=== PATIENT | female | born 1990 | race Caucasian/White ===

== ENCOUNTER 2025-01-23 23:02 | Emergency (ER) | payer SELFPAY ==
[2025-01-23 23:08] VITALS: BP 143/75; PULSE 97; RESP 18; TEMP 98.3; BMI 32.8
[2025-01-23 23:46] LABS: EPI CELLS >36 /uL (0-25.1); HCG,QUALITATIVE URINE Negative; HYALINE CASTS 0 /uL (0-3.1); URINE APPEARANCE CLOUDY; URINE BACTERIA 1022 /uL (0-1359); URINE BILIRUBIN NEGATIVE (NEGATIVE); URINE COLOR YELLOW; URINE GLUCOSE (UA) NEGATIVE (NEGATIVE); URINE KETONE NEGATIVE (NEGATIVE); URINE LEUK ESTERASE TRACE (NEGATIVE); URINE NITRITE NEGATIVE (NEGATIVE); URINE PROTEIN NEGATIVE (NEGATIVE); URINE RBC 9 /uL (0-23.9); URINE UROBILINOGEN 0.2 mg/dL (0.2-1.0); URINE WBC 34 /uL (0-25.8)
[2025-01-24] MEDS ORDERED: NITROFURANTOIN MACROCRYSTAL 50 MG CAPSULE (FP) ONE (00:15)
[2025-01-24] MEDS: NITROFURANTOIN MONOHYD/M-CRYST 100 MG CAPSULE PO SCH (00:17)
[2025-01-24] MEDS ORDERED: DEXAMETHASONE 4 MG TABLET (FP) ONE (00:54)
[2025-01-24 04:06] LABS: HCV DIAGNOSTIC IN-HOUSE W/RFLX NON-REACTIVE (NONREACTIVE)
[2025-01-24 06:10] LABS: HIV INTERPRETATION NEGATIVE (NEGATIVE)
== END 2025-01-24 00:17 | disposition home or self-care (01) ==
LOC: JER 23:02
DX: N39.0 Urinary tract infection, site not specified (principal); R30.0 Dysuria
CPT/HCPCS: 36415; 81003; 84703; 86803; 87086; 87389; 99283-25